=== PATIENT | female | born 1975 | race Caucasian/White ===

== ENCOUNTER 2016-12-19 19:57 | Inpatient (IN) | payer OTHER ==
[~2016-12-19] VITALS: Ht 157.5 cm; Wt 53.1 kg
[~2016-12-19 19:57] MED LIST: ALPR0.25 PO; ALPR1TAB6; BUPR8TAB; DEXT30TA16; DEXT5TAB27 PO; ESCI20TA; ESCI5TAB24 PO; ONDA4TAB7 PO; PRED20TA PO
[2016-12-19] MEDS ORDERED: ONDANSETRON PF 4 MG/2 ML VIAL. IV ONE (20:45)
[2016-12-19] MEDS ORDERED: IV NORMAL SALINE 1000ML BAG 1,000 ML IV SCH (21:08)
[2016-12-19 21:16] LABS: BASO # 0.1 x10^3/uL (0.0-0.2); BASO % 1 % (0-3); EOS % 0 % (0-3); HEMOGLOBIN 15.5 g/dL (12.0-15.5); LYMPH # 2.2 x10^3/uL (1.0-4.8); LYMPH % 22 % (24-48); MEAN CORPUSCULAR HEMOGLOBIN 30 pg (25-35); MEAN CORPUSCULAR HGB CONC 33 g/dL (31-37); MEAN CORPUSCULAR VOLUME 90 fL (79-100); MONO % 10 % (0-9); NEUT % 67 % (31-73); PLATELET COUNT 495 x10^3/uL (140-400); RED BLOOD COUNT 5.23 x10^6/uL (3.50-5.40); RED CELL DISTRIBUTION WIDTH 15.7 % (11.5-14.5); WHITE BLOOD COUNT 9.7 x10^3/uL (4.0-11.0)
[2016-12-19 21:18] LABS: BILIRUBIN,URINE MODERATE (NEG); GLUCOSE,URINE NEGATIVE (NEG); NITRITE,URINE NEGATIVE (NEG); PH,URINE 6.5; PROTEIN,URINE NEGATIVE (NEG-TRACE); UROBILINOGEN,URINE 0.2 mg/dL (0.2 mg/dL)
[2016-12-19 21:33] LABS: BACTERIA,URINE FEW /HPF (0-FEW); SQUAMOUS EPITHELIAL CELL,UR MANY /LPF
[2016-12-19 21:34] LABS: NEG OBC SER NEG; POS OBC SER POS
[2016-12-19 21:37] LABS: ALBUMIN 3.6 g/dL (3.4-5.0); ALBUMIN/GLOBULIN RATIO 0.8 (1.0-1.7); CALCIUM 9.1 mg/dL (8.5-10.1); CREATININE 1.8 mg/dL (0.6-1.0); GFR 31.2; TOTAL BILIRUBIN 0.4 mg/dL (0.2-1.0); TOTAL PROTEIN 8.2 g/dL (6.4-8.2)
[2016-12-19 21:40] LABS: POTASSIUM 2.5 mmol/L (3.5-5.1)
[2016-12-19] MEDS ORDERED: HYDROmorphone 2 MG/ML VIAL IV ONE (21:45)
[2016-12-19] MEDS ORDERED: POTASSIUM CL 40MEQ IN 0.9%NACL 1,000 ML IV ONE (22:00)
[2016-12-19] MEDS ORDERED: ONDANSETRON PF 4 MG/2 ML VIAL. IV PRN (22:15)
[2016-12-19] MEDS ORDERED: FENTANYL PF 100 MCG/2 ML VIAL. IV PRN (22:15)
[2016-12-19] MEDS ORDERED: ACETAMINOPHEN 325 MG TABLET. PO PRN (22:15)
[2016-12-19] MEDS: IV NORMAL SALINE 1000ML BAG 1,000 ML IV SCH (22:24)
[2016-12-19] MEDS ORDERED: POTASSIUM CHLORIDE 20 MEQ TABLET.ER. PO ONE (23:00)
[2016-12-20] VITALS (10 sets, daily range): BP systolic 86–126; BP diastolic 50–81
--- NOTE | 2016-12-20 00:31 | ACF ---
Admission Forms Criteria ABDOMINAL PAIN Clinical Indications for Admission to Inpatient Care (Place 'X' for any and all applicable criteria): Admission is indicated for ANY ONE of the following(1)(2)(3)(4)(5): [X]I. Inpatient admission required rather than observation care (Also use Abdominal Pain: Observation Care, as appropriate) because of ANY ONE of the following: [ ]a) Severe pain requiring acute inpatient management [ ]b) Identification of etiology/finding that requires inpatient care (eg, aortic dissection, free air) [ ]c) Absent bowel sounds with complete ileus(6) [ ]d) Suspected toxic megacolon [X]e) Severe electrolyte abnormalities requiring inpatient care [ ]f) High fever or infection requiring inpatient admission as indicated by ANY ONE of following(7)(8): [ ] i) Appropriate outpatient or observational care antimicrobial treatment unavailable, not effective, or not feasible [ ] ii) Documented bacteremia [ ] iii) Temperature > 104.9 degrees F (oral) [ ] iv) T >103.1 F (oral) or < 96.8 F(rectal) that does not respond to all emergency treatment measures [ ]g) Signs of intestinal obstruction [B] [ ]h) Hemodynamic instability [ ]i) IV fluid to replace significant ongoing losses (greater than 3 L/m2 per day) (12)(13) [ ]j) Percutaneous or open drainage (eg, abscess, biliary tract ) procedures [ ]k) Parenteral nutrition regimen that must be implemented on inpatient basis [ ]l) Other condition,treatment or monitoring requiring inpatient admission. [ ]II. Peritoneal signs present [ ]III. Surgery needed that cannot be performed on an ambulatory basis. [ ]IV. Evaluation requires patient to not eat or drink for extended period ( eg, more than 24 hours). [ ]V. Contraindications and/or Inappropriate clinical situations for Observational Care in patients with abdominal pain, when ANY ONE of the following is required: [ ]a) Thorough evaluation is required to prevent catastrophic events due to delays in diagnosing (e.g.Mesenteric ischemia) 1,3 [ ]b) Patient with severe pathology or with chronic symptoms unlikely to improve in the ED stay (3) [ ]. General contraindications and/or Inappropriate clinical situations for Observational Care in patients with abdominal pain, when ANY ONE of the following is required: [ ]a) Prediction of prolongation of LOS based on ANY ONE of the following may be considered as a contraindication for observational care 2, 3, 4, 5, 6, 7, 8, 9, 10, 11 [ ]i) Age > 65 yrs. [ ]ii) Patient arriving by ambulance [ ]iii) Patient with high acuity [ ]iv) Patient requiring vital sign monitoring [ ]v) Patient on IV medication [ ]b) Systolic blood pressures 180mmHg 3,12 [ ]c) Patient with altered mental status including delirium and other alteration of consciousness, (3) [ ]d) Patient whose discharge disposition will be to a care home home or rehabilitation home should not be managed in Emergency Department Observation Unit. CMS rule requires 3 days hospital stay before such placement.3,13 [ ]e) Patient with failure to thrive due to broad array of etiologies 3,16,17 [ ]f) Inability to ambulate 3,14 Extended stay beyond goal length of stay may be needed for(2)(3): [ ]a) Persistent abdominal pain with suspected intra-abdominal process [ ]b) Diagnosed condition requiring continued stay (e.g., pancreatitis, complicated diverticulitis) [ ]c) Surgery (e.g., colectomy) The original [email or web address] content created by [employer] has been revised. The portions of the content which have been revised are identified through the use of italic text or in bold, and [facility] has neither reviewed nor approved the modified material.All other unmodified content is copyright [employer]. Please see references footnoted in the original [email or web address] edition 2016 Admission Criteria Met?: Yes CARA RAMIREZ Dec 20, 2016 00:31
--- NOTE | 2016-12-20 01:24 | PHYS DOC ---
Past Medical History Past Medical History: Other Additional Past Medical Histor: CROHNS Past Surgical History: Colectomy, Other Additional Past Surgical Histo: BOWEL RESECTION Alcohol Use: Heavy Drug Use: None Adult General Chief Complaint Chief Complaint: ABDOMINAL PAIN HPI HPI Patient is a 41 year old female who has a history significant for Crohn's colitis who presents here today complaining of pain in her stomach. Patient denies any history of hypertension diabetes CHF COPD liver longer kidney problems. Patient is status post a colectomy and resection as well as a bilateral tubal ligation. Patient reports she smokes and drinks but does not do any drugs. Patient is not allergic to any medications. Patient reports the pain started approximately 1-2 days ago is been getting progressively worse. She denies any fevers shakes chills. Patient denies any diarrhea that's out of the ordinary for her. Patient reports that she usually has loose stools. Patient reports she's had nausea and vomiting. Patient denies any melena. Patient does report occasional slight amount of blood in her stools which she thinks is from her hemorrhoids. Patient denies any hematemesis. Patient has a dysuria frequency or urgency. Patient denies any URI symptoms. Patient reports that she has been unable to keep down much liquids or food over the last several days. Patient's physical exam was significant for diffuse mild tenderness to palpation. Patient had no rebound or guarding. Patient has normal active bowel sounds. 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 Patient does not present with any signs or symptoms of be consistent with an acute surgical abdomen. Patient's mucous membranes are moist. Patient is nontoxic appearing. She's ER workup was significant for labs revealed a significant hypokalemia. Patient's potassium level was 2.3. Patient's x-rays were unremarkable. There was no free air or air-fluid levels. There was a paucity of gas on the x-ray. A/P #1 Crohn's colitis exacerbation. Patient is clinically hemodynamically stable. Patient was given pain medicines in the ED with some resolution of her discomfort. Patient did have a significant hypokalemia that will need to be treated aggressively in the ED as well as inpatient. Patient's potassium level was 2.3 and she did complain of some generalized weakness. Patient was given by mouth potassium as well as repleted through IV potassium as well. Patient be admitted to the hospital on, treated for further repletion of her potassium and monitoring and treatment of her abdominal pain and Crohn's colitis. Review of Systems Review of Systems Constitutional: Denies fever or chills [] Eyes: Denies change in visual acuity, redness, or eye pain [] All other review systems are negative except as documented in the history of present illness portion. Current Medications Current Medications Current Medications Medications (Trade) Dose Ordered Sig/Moiz Start Time Stop Time Status Last Admin Dose Admin Hydromorphone HCl 1 mg 1 mg 1X ONCE 12/19/16 21:45 12/19/16 21:46 DC 12/19/16 21:47 1 MG Ondansetron HCl (Zofran) 4 mg 1X ONCE 12/19/16 20:45 12/19/16 21:12 DC 12/19/16 21:18 4 MG Potassium Chloride/Sodium Chloride (KCl 40 Meq-NS 1,000 ml Iv Soln) 1,000 ml @ 75 mls/hr 1X ONCE 12/19/16 22:00 12/20/16 11:19 12/19/16 22:22 75 MLS/HR Sodium Chloride (Iv Sodium Chloride 0.9% 1000ml Bag) 1,000 ml @ 1,000 mls/hr Q1H 12/19/16 21:08 12/19/16 22:07 DC 12/19/16 21:17 1,000 MLS/HR Allergies Allergies Allergies Coded Allergies Type Severity Reaction Last Updated Verified No Known Drug Allergies 03/10/16 No Physical Exam Physical Exam Constitutional: Well developed, well nourished, no acute distress, non-toxic appearance. [] HENT: Normocephalic, atraumatic, bilateral external ears normal, oropharynx moist, no oral exudates, nose normal. [] Eyes: PERRLA, EOMI, conjunctiva normal, no discharge. [] Neck: Normal range of motion, no tenderness, supple, no stridor. [] Cardiovascular:Heart rate regular rhythm, no murmur [] Lungs & Thorax: Bilateral breath sounds clear to auscultation [] Back: No tenderness, no CVA tenderness. [] Extremities: No tenderness, no cyanosis, no clubbing, ROM intact, no edema. [] Neurologic: Alert and oriented X 3, normal motor function, normal sensory function, no focal deficits noted. [] Psychologic: Affect normal, judgement normal, mood normal. [] Current Patient Data Vital Signs Vital Signs Date Time Temp Pulse Resp B/P Pulse Ox O2 Delivery O2 Flow Rate FiO2 12/19/16 21:58 95 135/87 98 Room Air 12/19/16 21:47 16 12/19/16 20:00 96.6 96.6 Lab Values Laboratory Tests Test 12/19/16 20:36 White Blood Count 9.7x10^3/uL (4.0-11.0) Red Blood Count 5.23x10^6/uL (3.50-5.40) Hemoglobin 15.5g/dL (12.0-15.5) Hematocrit 47.0% (36.0-47.0) Mean Corpuscular Volume 90fL (79-100) Mean Corpuscular Hemoglobin 30pg (25-35) Mean Corpuscular Hemoglobin Concent 33g/dL (31-37) Red Cell Distribution Width 15.7% (11.5-14.5) H Platelet Count 495x10^3/uL (140-400) H Neutrophils (%) (Auto) 67% (31-73) Lymphocytes (%) (Auto) 22% (24-48) L Monocytes (%) (Auto) 10% (0-9) H Eosinophils (%) (Auto) 0% (0-3) Basophils (%) (Auto) 1% (0-3) Neutrophils # (Auto) 6.5x10^3uL (1.8-7.7) Lymphocytes # (Auto) 2.2x10^3/uL (1.0-4.8) Monocytes # (Auto) 0.9x10^3/uL (0.0-1.1) Eosinophils # (Auto) 0.0x10^3/uL (0.0-0.7) Basophils # (Auto) 0.1x10^3/uL (0.0-0.2) Urine Collection Type Unknown Urine Color Yellow Urine Clarity Clear Urine pH 6.5 Urine Specific [place] 1.010 Urine Protein Negativemg/dL (NEG-TRACE) Urine Glucose (UA) Negativemg/dL (NEG) Urine Ketones (Stick) Tracemg/dL (NEG) Urine Blood Trace (NEG) Urine Nitrite Negative (NEG) Urine Bilirubin Moderate (NEG) Urine Urobilinogen Dipstick 0.2mg/dL (0.2 mg/dL) Urine Leukocyte Esterase Trace (NEG) Urine RBC 3-5/HPF (0-2) Urine WBC 5-10/HPF (0-4) Urine Squamous Epithelial Cells Many/LPF Urine Bacteria Few/HPF (0-FEW) Sodium Level 133mmol/L (136-145) L Potassium Level 2.5mmol/L (3.5-5.1) *L Chloride Level 94mmol/L (98-107) L Carbon Dioxide Level 21mmol/L (21-32) Anion Gap 18 (6-14) H Blood Urea Nitrogen 12mg/dL (7-20) Creatinine 1.8mg/dL (0.6-1.0) H Estimated GFR (Cockcroft-Gault) 31.2 BUN/Creatinine Ratio 7 (6-20) Glucose Level 89mg/dL (70-99) Calcium Level 9.1mg/dL (8.5-10.1) Total Bilirubin 0.4mg/dL (0.2-1.0) Aspartate Amino Transferase (AST) 22U/L (15-37) Alanine Aminotransferase (ALT) 19U/L (14-59) Alkaline Phosphatase 132U/L (46-116) H Total Protein 8.2g/dL (6.4-8.2) Albumin 3.6g/dL (3.4-5.0) Albumin/Globulin Ratio 0.8 (1.0-1.7) L Lipase 189U/L (73-393) Serum Test, Qualitative Negative (NEG) Laboratory Tests 12/19/16 20:36 Laboratory Tests 12/19/16 20:36 EKG EKG [] Radiology/Procedures Radiology/Procedures [] Course & Med Decision Making Course & Med Decision Making Pertinent Labs and Imaging studies reviewed. (See chart for details) [] Dragon Disclaimer Dragon Disclaimer This electronic medical record was generated, in whole or in part, using a voice recognition dictation system. Departure Departure Impression: Primary Impression: Intractable abdominal pain Additional Impressions: Nausea & vomiting Hypokalemia Dehydration Crohns disease Disposition: ADMITTED INPATIENT Admitting Physician: Other (Reusch) Condition: STABLE Referrals: NO PCP (PCP) Problem Qualifiers OLIVIER BARBOSA MD Dec 20, 2016 01:24
[2016-12-20] MEDS: NICOTINE 14MG PATCH. TD SCH ×2 (01:30→08:54)
[2016-12-20] MEDS: IV NORMAL SALINE 1000ML BAG 1,000 ML IV SCH ×2 (05:21→15:42)
[2016-12-20 05:43] LABS: BASO # 0.1 x10^3/uL (0.0-0.2); BASO % 1 % (0-3); EOS % 1 % (0-3); HEMOGLOBIN 11.8 g/dL (12.0-15.5); LYMPH # 2.6 x10^3/uL (1.0-4.8); LYMPH % 33 % (24-48); MEAN CORPUSCULAR HEMOGLOBIN 30 pg (25-35); MEAN CORPUSCULAR HGB CONC 33 g/dL (31-37); MEAN CORPUSCULAR VOLUME 91 fL (79-100); MONO % 13 % (0-9); NEUT % 52 % (31-73); PLATELET COUNT 345 x10^3/uL (140-400); RED BLOOD COUNT 3.97 x10^6/uL (3.50-5.40); RED CELL DISTRIBUTION WIDTH 15.2 % (11.5-14.5); WHITE BLOOD COUNT 7.7 x10^3/uL (4.0-11.0)
[2016-12-20] MEDS: ONDANSETRON ODT 4 MG TAB.RAPDIS. PO SCH ×3 (06:00→17:38)
[2016-12-20 06:09] LABS: ALBUMIN 2.5 g/dL (3.4-5.0); ALBUMIN/GLOBULIN RATIO 0.8 (1.0-1.7); CALCIUM 7.5 mg/dL (8.5-10.1); CREATININE 1.3 mg/dL (0.6-1.0); GFR 45.4; POTASSIUM 3.4 mmol/L (3.5-5.1); TOTAL BILIRUBIN 0.3 mg/dL (0.2-1.0); TOTAL PROTEIN 5.8 g/dL (6.4-8.2)
--- NOTE | 2016-12-20 08:36 | RAD ---
Two-view abdominal series and PA view chest x-ray Clinical indications: Left-sided abdominal pain. Crohn's disease. Findings: No gas is identified within the bowel. No air-fluid levels are seen within the bowel. No free intraperitoneal air is seen. Vascular calcifications are seen within the pelvis. Chest x-ray demonstrates no acute lung infiltrate or pleural effusion or pulmonary edema or pneumothorax. The heart size and pulmonary vasculature and mediastinum and both kimberly are unremarkable. IMPRESSION: Gasless abdomen. This may be be seen with bowel obstruction with fluid-filled bowel loops. No free air. Chest x-ray demonstrates no acute lung infiltrate.
[2016-12-20] MEDS: ESCITALOPRAM 5 MG TABLET. PO SCH (08:53)
[2016-12-20] MEDS: ALPRAZOLAM 0.25 MG TABLET. PO SCH (08:53)
[2016-12-20] MEDS: DEXTROAMPHETAMINE PO SCH ×2 (09:00→20:59)
[2016-12-20] MEDS: AMPHETAMINE PO SCH ×2 (09:00→20:59)
[2016-12-20] MEDS: PREDNISONE 20 MG TABLET PO SCH (09:00)
--- NOTE | 2016-12-20 14:24 | PDOC2 ---
GI CONSULT Reason For Consult: Crohn's, abd pain HPI: HPI: 41 y/o white female admitted through the ER. Per RN, IPC ordering GI consult. GI history: Crohn's disease diagnosed ~15 years ago. Initially on Remicade, stopped for "allergy," then was switched to oral medication w/o good response. Had ileocolonic resection 8-9 years ago. Afterwards treated w/ Humira which she didn't like, switched back to an oral med which wasn't tolerated. Since then takes intermittent prednisone for flare symptoms (estimates 3-4 times yearly). Last colonoscopy ~4 years ago. Last seen here for same in 08/2016. At that time, checked TPMT (above normal) and advised outpt follow-up to discuss Imuran which she has not done. Past imaging here as below. Still smokes 1/2 ppd, drinks 2 glasses of wine each night. Off of prednisone since 08/2016. Flare symptoms recurred 2-3 weeks ago. She describes 5-6 watery stools daily (not unlike her normal pattern), occasional rectal bleeding, mid to left-sided abd pain, and n/v. Takes Excedrin QD. Currently tolerating clear liquids. Significant labs: Hgb 15.5 to 1.8 (similar to admission last year), K+ 2.5 to 3.4, Cr 1.8 to 1.3. Acute abd series shows gasless abdomen. PMH: PMH: Crohn's, GERD, anxiety/depression, ileocolonic resection, tubal ligation, unilateral salpingo-oophorectomy, left wrist surgery, tonsillectomy FH: Family History: Other (PGF had "a colon issue with surgery") Social History: Smoke: <1 pack per day (1/2 ppd) ALCOHOL: other (2 glasses of wine each night) Drugs: None ROS: GEN: Denies fevers, chills, sweats HEENT: Denies blurred vision, sore throat CV: Denies chest pain RESP: Denies shortness of air, cough GI: Per HPI : Denies hematuria, dysuria ENDO: Denies weight changes NEURO: Denies confusion, dizziness MSK: Denies weakness, joint pain/swelling SKIN: Denies jaundice, pruritus VItals: Vitals: Vital Signs Date Time Temp Pulse Resp B/P Pulse Ox O2 Delivery O2 Flow Rate FiO2 12/20/16 10:47 97.9 91 16 96/59 97 Room Air 97.9 Labs: Labs: Laboratory Tests Test 12/19/16 19:46 12/19/16 20:36 12/20/16 03:15 Bedside Urine HCG, Qualitative Hcg negative (Negative) White Blood Count 9.7x10^3/uL (4.0-11.0) 7.7x10^3/uL (4.0-11.0) Red Blood Count 5.23x10^6/uL (3.50-5.40) 3.97x10^6/uL (3.50-5.40) Hemoglobin 15.5g/dL (12.0-15.5) 11.8g/dL (12.0-15.5) Hematocrit 47.0% (36.0-47.0) 36.0% (36.0-47.0) Mean Corpuscular Volume 90fL (79-100) 91fL (79-100) Mean Corpuscular Hemoglobin 30pg (25-35) 30pg (25-35) Mean Corpuscular Hemoglobin Concent 33g/dL (31-37) 33g/dL (31-37) Red Cell Distribution Width 15.7% (11.5-14.5) 15.2% (11.5-14.5) Platelet Count 495x10^3/uL (140-400) 345x10^3/uL (140-400) Neutrophils (%) (Auto) 67% (31-73) 52% (31-73) Lymphocytes (%) (Auto) 22% (24-48) 33% (24-48) Monocytes (%) (Auto) 10% (0-9) 13% (0-9) Eosinophils (%) (Auto) 0% (0-3) 1% (0-3) Basophils (%) (Auto) 1% (0-3) 1% (0-3) Neutrophils # (Auto) 6.5x10^3uL (1.8-7.7) 4.0x10^3uL (1.8-7.7) Lymphocytes # (Auto) 2.2x10^3/uL (1.0-4.8) 2.6x10^3/uL (1.0-4.8) Monocytes # (Auto) 0.9x10^3/uL (0.0-1.1) 1.0x10^3/uL (0.0-1.1) Eosinophils # (Auto) 0.0x10^3/uL (0.0-0.7) 0.1x10^3/uL (0.0-0.7) Basophils # (Auto) 0.1x10^3/uL (0.0-0.2) 0.1x10^3/uL (0.0-0.2) Urine Collection Type Unknown Urine Color Yellow Urine Clarity Clear Urine pH 6.5 Urine Specific [place] 1.010 Urine Protein Negativemg/dL (NEG-TRACE) Urine Glucose (UA) Negativemg/dL (NEG) Urine Ketones (Stick) Tracemg/dL (NEG) Urine Blood Trace (NEG) Urine Nitrite Negative (NEG) Urine Bilirubin Moderate (NEG) Urine Urobilinogen Dipstick 0.2mg/dL (0.2 mg/dL) Urine Leukocyte Esterase Trace (NEG) Urine RBC 3-5/HPF (0-2) Urine WBC 5-10/HPF (0-4) Urine Squamous Epithelial Cells Many/LPF Urine Bacteria Few/HPF (0-FEW) Sodium Level 133mmol/L (136-145) 135mmol/L (136-145) Potassium Level 2.5mmol/L (3.5-5.1) 3.4mmol/L (3.5-5.1) Chloride Level 94mmol/L (98-107) 103mmol/L (98-107) Carbon Dioxide Level 21mmol/L (21-32) 18mmol/L (21-32) Anion Gap 18 (6-14) 14 (6-14) Blood Urea Nitrogen 12mg/dL (7-20) 11mg/dL (7-20) Creatinine 1.8mg/dL (0.6-1.0) 1.3mg/dL (0.6-1.0) Estimated GFR (Cockcroft-Gault) 31.2 45.4 BUN/Creatinine Ratio 7 (6-20) 8 (6-20) Glucose Level 89mg/dL (70-99) 68mg/dL (70-99) Calcium Level 9.1mg/dL (8.5-10.1) 7.5mg/dL (8.5-10.1) Total Bilirubin 0.4mg/dL (0.2-1.0) 0.3mg/dL (0.2-1.0) Aspartate Amino Transf (AST/SGOT) 22U/L (15-37) 16U/L (15-37) Alanine Aminotransferase (ALT/SGPT) 19U/L (14-59) 14U/L (14-59) Alkaline Phosphatase 132U/L (46-116) 90U/L (46-116) Total Protein 8.2g/dL (6.4-8.2) 5.8g/dL (6.4-8.2) Albumin 3.6g/dL (3.4-5.0) 2.5g/dL (3.4-5.0) Albumin/Globulin Ratio 0.8 (1.0-1.7) 0.8 (1.0-1.7) Lipase 189U/L (73-393) Serum Test, Qualitative Negative (NEG) Allergies: Coded Allergies: No Known Drug Allergies (Unverified , 03/10/16) Medications: Current Medications Medications (Trade) Dose Ordered Sig/Moiz Route PRN Reason Start Time Stop Time Status Last Admin Dose Admin Sodium Chloride (Iv Sodium Chloride 0.9% 1000ml Bag) 1,000 ml @ 1,000 mls/hr Q1H IV 12/19/16 21:08 12/19/16 22:07 DC 12/19/16 21:17 Ondansetron HCl (Zofran) 4 mg 1X ONCE IV 12/19/16 20:45 12/19/16 21:12 DC 12/19/16 21:18 Hydromorphone HCl (Dilaudid) 1 mg 1X ONCE IV 12/19/16 21:45 12/19/16 21:46 DC 12/19/16 21:47 Potassium Chloride 40 meq 40 meq 1X ONCE PO 12/19/16 23:00 12/19/16 23:01 DC 12/19/16 22:30 Potassium Chloride/Sodium Chloride (KCl 40 Meq-NS 1,000 ml Iv Soln) 1,000 ml @ 75 mls/hr 1X ONCE IV 12/19/16 22:00 12/20/16 11:19 DC 12/19/16 22:22 Ondansetron HCl (Zofran) 4 mg PRN Q8HRS PRN IV NAUSEA/VOMITING 12/19/16 22:15 12/20/16 22:14 12/19/16 23:19 Fentanyl Citrate 50 mcg 50 mcg PRN Q2HR PRN IV PAIN 12/19/16 22:15 12/20/16 22:14 12/19/16 23:23 Sodium Chloride (Iv Sodium Chloride 0.9% 1000ml Bag) 1,000 ml @ 125 mls/hr Q8H IV 12/19/16 22:15 12/20/16 22:14 12/20/16 05:21 Alprazolam (Xanax) 0.25 mg DAILY PO 12/20/16 09:00 12/20/16 08:53 Escitalopram Oxalate (Lexapro) 5 mg DAILY PO 12/20/16 09:00 12/20/16 08:53 Ondansetron HCl (Zofran Odt) 4 mg Q6HRS PO 12/20/16 06:00 12/20/16 12:30 Nicotine (Nicoderm Cq 14mg) 1 patch DAILY TD 12/20/16 01:30 12/20/16 08:54 Imaging: Imaging: CT A/P w/ oral and IV contrast 03/2016 IMPRESSION - Status post subtotal colectomy with anastomosis in the right lower quadrant. There is a 10-15 centimeter segment of small bowel just proximal to the anastomosis that shows wall thickening and mucosal enhancement, consistent with active Crohn disease. No evidence of perforation, obstruction or abscess. - Borderline enlarged mesenteric lymph nodes, nonspecific but likely related to known Crohn disease. - Otherwise no significant abnormality. CT A/P w/ oral contrast 08/2016 IMPRESSION: No definite acute finding seen in the abdomen or pelvis. No definite small or large bowel pathology seen. Bilateral minute punctate renal calculi. PE: GEN: NAD HEENT: Atraumatic, PERRL LUNGS: CTAB HEART: RRR ABD: BS+, periumbilical /epigastric tenderness spreads lower, +scar EXTREMITY: No edema SKIN: No rashes, no jaundice NEURO/PSYCH: A & O 3 A/P: A/P: Crohn's disease s/p ileocolonic resection -has tried biologics (Remicade, Humira) and oral medications (presumably mesalamines, unsure of Imuran) in the past -uses intermittent prednisone for flares 3-4 times yearly -diagnosed 15 years ago, last colonoscopy 4 years ago, last saw a honey producer in [place], [place] 2 years ago -checked TPMT last admission (above normal) -still smokes Abdominal pain, n/v, diarrhea, hematochezia -typical flare symptoms, onset 2-3 weeks ago -x-ray w/ possible obstruction ---> no vomiting today, tolerating clears CONSUELO -- D/w Dr. Childress - start IV steroids, check CT A/P (oral contrast only w/ Cr 1.3 ) r/o obstruction/stricture, and ask surgery to see. ?start Imuran FREDRICK WILSON Dec 20, 2016 14:24
[2016-12-20] MEDS ORDERED: IOHEXOL 240 MG/ML 50ML VIAL. PO ONE (14:30)
[2016-12-20 15:14] LABS: ALBUMIN 2.2 g/dL (3.4-5.0); ALBUMIN/GLOBULIN RATIO 0.7 (1.0-1.7); CALCIUM 7.4 mg/dL (8.5-10.1); GFR 61.4; POTASSIUM 3.2 mmol/L (3.5-5.1); TOTAL BILIRUBIN 0.2 mg/dL (0.2-1.0); TOTAL PROTEIN 5.2 g/dL (6.4-8.2)
[2016-12-20] MEDS: methylPREDNISolone SOD SUCC PF 40 MG/ML VIAL. IV SCH ×2 (15:43→20:58)
--- NOTE | 2016-12-20 17:39 | RAD ---
CT study of the abdomen and pelvis without IV contrast Clinical indications: Crohn's disease. Status post resection. Abdominal pain with nausea and vomiting. Technique: Non-IV contrast helical CT scanning of the abdomen and pelvis was performed. Without IV contrast, the sensitivity to detect organ pathology is decreased. 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 PQRS Compliance Statement: One or more of the following individualized dose reduction techniques were utilized for this examination: 1. Automated exposure control 2. Adjustment of the mA and/or kV according to patient size 3. Use of iterative reconstruction technique Comparison: March 10, 2016. Findings: The liver and spleen and pancreas are homogeneous in appearance on this noncontrast study. The gallbladder is normal and no extra hepatic biliary ductal dilatation is seen. No adrenal mass is seen. Tiny punctate stones are seen within both kidneys mainly involving the medulla and therefore is consistent with medullary sponge kidney. Otherwise no obstructing stone of either kidney is seen. No hydronephrosis or hydroureter is seen. Multiple calcified phleboliths are seen within the anatomic pelvis. Urinary bladder is not distended. No renal mass is seen on either side on this noncontrast study. No aneurysmal dilatation of the abdominal aorta is seen. Reactive mesenteric lymph nodes are present within the anterior lower abdomen and the upper pelvis. The patient has had a subtotal colectomy. There is diffuse wall thickening of the entire colon and rectosigmoid region to the ileocolic anastomosis. There is mild small bowel wall thickening just proximal to the ileocolic anastomosis. No obstructive bowel pattern is seen. Contrast is seen all the way down into the rectosigmoid region. No free air or free fluid is seen. No osteolytic process is seen. No lung base infiltrate is seen. IMPRESSION: History of subtotal colectomy. There is diffuse wall thickening of the entire colon and rectosigmoid region. This may be seen with Crohn's disease given the patient's history but typically, Crohn's disease is more segmental. Therefore other causes of colitis including ulcerative colitis or infection should be considered. There is some mild wall thickening of the distal small bowel just proximal to the ileocolic anastomosis as well. Reactive mesenteric lymphadenopathy is seen.
[2016-12-21 02:58] VITALS: BP 109/79
[2016-12-21 04:43] LABS: BASO % 0 % (0-3); EOS % 0 % (0-3); HEMATOCRIT 36.6 % (36.0-47.0); HEMOGLOBIN 12.2 g/dL (12.0-15.5); LYMPH # 0.6 x10^3/uL (1.0-4.8); LYMPH % 11 % (24-48); MEAN CORPUSCULAR HEMOGLOBIN 29 pg (25-35); MEAN CORPUSCULAR HGB CONC 33 g/dL (31-37); MEAN CORPUSCULAR VOLUME 88 fL (79-100); MONO % 2 % (0-9); NEUT % 86 % (31-73); PLATELET COUNT 349 x10^3/uL (140-400); RED BLOOD COUNT 4.16 x10^6/uL (3.50-5.40); RED CELL DISTRIBUTION WIDTH 15.9 % (11.5-14.5); WHITE BLOOD COUNT 5.5 x10^3/uL (4.0-11.0)
[2016-12-21] MEDS: ONDANSETRON ODT 4 MG TAB.RAPDIS. PO SCH ×4 (06:00→18:02)
[2016-12-21 07:00] VITALS: BP 84/51
[2016-12-21 08:09] LABS: PLT ESTIMATE ADEQUATE (ADEQUATE)
[2016-12-21] MEDS: ALPRAZOLAM 0.25 MG TABLET. PO SCH (08:37)
[2016-12-21] MEDS: ESCITALOPRAM 5 MG TABLET. PO SCH (08:37)
[2016-12-21] MEDS: methylPREDNISolone SOD SUCC PF 40 MG/ML VIAL. IV SCH (08:38)
[2016-12-21] MEDS: NICOTINE 14MG PATCH. TD SCH (08:38)
[2016-12-21] MEDS: DEXTROAMPHETAMINE PO SCH (09:00)
[2016-12-21] MEDS: AMPHETAMINE PO SCH (09:00)
[2016-12-21] MEDS: PREDNISONE 20 MG TABLET PO SCH (09:00)
[2016-12-21 11:00] VITALS: BP 92/54
--- NOTE | 2016-12-21 11:35 | PDOC ---
Subjective: Subjective: Feeling much better today. Tolerating clears, wants to advance. Less abd pain. Stooling the same as always. Wants to leave. Objective: Objective: D/w Dr. Thomas RN. Vital Signs: Vital Signs Date Time Temp Pulse Resp B/P Pulse Ox O2 Delivery O2 Flow Rate FiO2 12/21/16 07:00 97.9 80 17 84/51 98 Room Air 97.9 Labs: Laboratory Tests Test 12/20/16 14:50 12/21/16 03:45 Sodium Level 139mmol/L Potassium Level 3.2mmol/L Chloride Level 109mmol/L Carbon Dioxide Level 21mmol/L Anion Gap 9 Blood Urea Nitrogen 7mg/dL Creatinine 1.0mg/dL Estimated GFR (Cockcroft-Gault) 61.4 BUN/Creatinine Ratio 7 Glucose Level 80mg/dL Calcium Level 7.4mg/dL Total Bilirubin 0.2mg/dL Aspartate Amino Transf (AST/SGOT) 15U/L Alanine Aminotransferase (ALT/SGPT) 12U/L Alkaline Phosphatase 80U/L Total Protein 5.2g/dL Albumin 2.2g/dL Albumin/Globulin Ratio 0.7 White Blood Count 5.5x10^3/uL Red Blood Count 4.16x10^6/uL Hemoglobin 12.2g/dL Hematocrit 36.6% Mean Corpuscular Volume 88fL Mean Corpuscular Hemoglobin 29pg Mean Corpuscular Hemoglobin Concent 33g/dL Red Cell Distribution Width 15.9% Platelet Count 349x10^3/uL Neutrophils (%) (Auto) 86% Lymphocytes (%) (Auto) 11% Monocytes (%) (Auto) 2% Eosinophils (%) (Auto) 0% Basophils (%) (Auto) 0% Neutrophils # (Auto) 4.7x10^3uL Lymphocytes # (Auto) 0.6x10^3/uL Monocytes # (Auto) 0.1x10^3/uL Eosinophils # (Auto) 0.0x10^3/uL Basophils # (Auto) 0.0x10^3/uL Segmented Neutrophils % 70% Band Neutrophils % 20% Lymphocytes % 6% Atypical Lymphocytes % (Manual) 1% Monocytes % 3% Platelet Estimate Adequate Imaging: CT A/P w/ oral contrast IMPRESSION: History of subtotal colectomy. There is diffuse wall thickening of the entire colon and rectosigmoid region. This may be seen with Crohn's disease given the patient's history but typically, Crohn's disease is more segmental. Therefore other causes of colitis including ulcerative colitis or infection should be considered. There is some mild wall thickening of the distal small bowel just proximal to the ileocolic anastomosis as well. Reactive mesenteric lymphadenopathy is seen. PE: GEN: NAD LUNGS: CTAB HEART: RRR ABD: NABS, S/ND/NT NEURO/PSYCH: A & O 3 A/P: Crohn's disease s/p ileocolonic resection -has tried biologics (Remicade, Humira) and oral medications (presumably mesalamines, unsure of Imuran) in the past -uses intermittent prednisone for flares -diagnosed 15 years ago (says Crohn's colitis), last colonoscopy 4 years ago -TPMT normal -still smokes Abdominal pain, n/v, diarrhea, hematochezia - improved -typical flare symptoms, onset 2-3 weeks ago -CT as above, stool studies pending -- Better today. Will advance diet. Dr. Childress to see this afternoon. ?change to PO steroids ?Imuran Suggest GI follow-up as outpt, smoking cessation. FREDRICK WILSON Dec 21, 2016 11:35
[2016-12-21 12:55] VITALS: BP 92/54
[2016-12-21 15:00] VITALS: BP 163/53
--- NOTE | 2016-12-22 01:34 | DS ---
DATE OF DISCHARGE: 12/21/2016 ADMISSION DIAGNOSIS: Crohn's exacerbation. DISCHARGE DIAGNOSIS: Resolving Crohn's exacerbation. HOSPITAL COURSE: The patient is a pleasant 41-year-old female presented with Crohn's exacerbation. She was admitted. We consulted with GI. She was given steroids and empiric antibiotics and fluids. Today, she is doing better. We plan to discharge with close outpatient followup. DISPOSITION: Home. ACTIVITY: As tolerated. DIET: Low sodium. MEDICATIONS: Please see the MRAD. TOTAL TIME: 32 minutes. FARA MEJIA DO DR: GUSTAVO/nieves JOB#: [id number] / [id number]
== END 2016-12-21 19:40 | disposition home or self-care (01) | DRG 385 ==
LOC: ER 19:57 → 5 NORTH 22:02
PROVIDERS: ADMIT Internal Medicine Hematology & Oncology; ATTEND Internal Medicine Hematology & Oncology
DX: K50.10 Crohn's disease of large intestine without complications (principal); N17.0 Acute kidney failure with tubular necrosis; E86.0 Dehydration; E87.6 Hypokalemia; F17.210 Nicotine dependence, cigarettes, uncomplicated; F32.9 Major depressive disorder, single episode, unspecified; F41.9 Anxiety disorder, unspecified; K21.9 Gastro-esophageal reflux disease without esophagitis; Z90.49 Acquired absence of other specified parts of digestive tract; N20.0 Calculus of kidney; K64.9 Unspecified hemorrhoids; Z98.51 Tubal ligation status; Z90.79 Acquired absence of other genital organ(s)
CPT/HCPCS: 36415; 74022; 74176; 80053; 81001; 81025; 83690; 84703; 85007; 85027; 87045; 87086; 87324; 96361; 96374; 96375; 96376; J1170; J2405; J2920; J3010; J3480; J7030; Q0162; Q9966; 99285-25

== ENCOUNTER 2018-08-21 17:15 | Emergency (ER) | payer OTHER ==
[~2018-08-21] VITALS: Ht 157.5 cm; Wt 56.7 kg
[~2018-08-21 17:15] MED LIST changes: -ESCI20TA; -ESCI5TAB24 PO; +ESCITALOPRAM OX20 MG; +ESCITALOPRAM OXA5 MG PO; +METR500T PO
[2018-08-21 18:19] LABS: BILIRUBIN,URINE NEGATIVE (NEG); CLARITY,URINE CLEAR; COLOR,URINE YELLOW; NITRITE,URINE NEGATIVE (NEG); PH,URINE 6.5; PROTEIN,URINE NEGATIVE (NEG-TRACE); UROBILINOGEN,URINE 0.2 mg/dL (0.2 mg/dL)
[2018-08-21 18:26] LABS: BARBITURATES NEG (NEG); BENZODIAZEPINES POS (NEG); CANNABINOIDS NEG (NEG); COCAINE NEG (NEG); METHADONE NEG (NEG); OPIATES NEG (NEG); PHENCYCLIDINE NEG (NEG)
[2018-08-21] MEDS: IV NORMAL SALINE 1000ML BAG 1,000 ML IV ONE (18:26)
[2018-08-21] MEDS: methylPREDNISolone SOD SUCC PF 125 MG/2 ML VIAL. IV ONE (18:27)
[2018-08-21 18:28] LABS: BASO % 0 % (0-3); EOS % 0 % (0-3); HEMATOCRIT 35.7 % (36.0-47.0); HEMOGLOBIN 12.1 g/dL (12.0-15.5); LYMPH # 0.7 x10^3/uL (1.0-4.8); LYMPH % 13 % (24-48); MEAN CORPUSCULAR HEMOGLOBIN 31 pg (25-35); MEAN CORPUSCULAR HGB CONC 34 g/dL (31-37); MEAN CORPUSCULAR VOLUME 91 fL (79-100); MONO # 0.2 x10^3/uL (0.0-1.1); MONO % 4 % (0-9); NEUT # 4.9 x10^3uL (1.8-7.7); NEUT % 83 % (31-73); PLATELET COUNT 411 x10^3/uL (140-400); RED BLOOD COUNT 3.94 x10^6/uL (3.50-5.40); RED CELL DISTRIBUTION WIDTH 15.3 % (11.5-14.5); WHITE BLOOD COUNT 5.9 x10^3/uL (4.0-11.0)
[2018-08-21 18:28] LABS: AMPHETAMINE/METHAMPHETAMINE POS (NEG); BACTERIA,URINE FEW /HPF (0-FEW); RBC,URINE 0 /HPF (0-2); SQUAMOUS EPITHELIAL CELL,UR FEW /LPF; WBC,URINE 0 /HPF (0-4)
[2018-08-21] MEDS: ONDANSETRON PF 4 MG/2 ML VIAL. IV ONE (18:28)
[2018-08-21] MEDS: MORPHINE SULFATE 10 MG/ML VIAL. IV ONE (18:29)
[2018-08-21 18:44] LABS: CALCIUM 8.9 mg/dL (8.5-10.1); CREATININE 1.1 mg/dL (0.6-1.0); GFR 54.5; POTASSIUM 3.5 mmol/L (3.5-5.1)
[2018-08-21] MEDS ORDERED: CONTRAST GIVEN. MC PRN (18:45)
--- NOTE | 2018-08-21 18:48 | PHYS DOC ---
Past Medical History Past Medical History: Other Additional Past Medical Histor: CROHNS Past Surgical History: Colectomy, Other Additional Past Surgical Histo: BOWEL RESECTION Alcohol Use: Heavy Drug Use: None Adult General Chief Complaint Chief Complaint: NAUSEA/VOMITING/DIARRHA HPI HPI Patient is a 43 year old female with a history of Crohn's/colitis who presents today complaining of nausea and vomiting for 2 weeks as well as diarrhea. Patient is also complaining of 7 out of 10 left-sided abdominal pain that started worse since last week. Patient denies any hematemesis or melena. She states she is currently on prednisone from a previous prescription. Review of Systems Review of Systems Constitutional: Denies fever or chills [] Eyes: Denies change in visual acuity, redness, or eye pain [] HENT: Denies nasal congestion or sore throat [] Respiratory: Denies cough or shortness of breath [] Cardiovascular: No additional information not addressed in HPI [] GI: Reports nausea vomiting and diarrhea. Reports abdominal pain. : Denies dysuria or hematuria [] Musculoskeletal: Denies back pain or joint pain [] Integument: Denies rash or skin lesions [] Neurologic: Denies headache, focal weakness or sensory changes [] All other systems were reviewed and found to be within normal limits, except as documented in this note. Current Medications Current Medications Current Medications Medications (Trade) Dose Ordered Sig/Moiz Start Time Stop Time Status Last Admin Dose Admin Info (CONTRAST GIVEN -- Rx MONITORING) 1 each PRN DAILY PRN 08/21/18 18:45 08/23/18 18:44 Iohexol (Omnipaque 300 Mg/ml) 75 ml 1X ONCE 08/21/18 18:45 08/21/18 18:46 DC 08/21/18 19:09 60 ML Methylprednisolone Sodium Succinate (SOLU-Medrol 125MG VIAL) 125 mg 1X ONCE 08/21/18 18:30 08/21/18 18:31 DC 08/21/18 18:27 125 MG Morphine Sulfate (Morphine Sulfate) 5 mg 1X ONCE 08/21/18 18:30 08/21/18 18:31 DC 08/21/18 18:29 5 MG Ondansetron HCl (Zofran) 4 mg 1X ONCE 08/21/18 18:30 08/21/18 18:31 DC 12/12/18 18:28 4 MG Sodium Chloride 1,000 ml @ 1,000 mls/hr 1X ONCE 08/21/18 18:30 08/21/18 19:29 DC 08/21/18 18:26 1,000 MLS/HR Allergies Allergies Allergies Coded Allergies Type Severity Reaction Last Updated Verified No Known Drug Allergies 08/21/18 No Physical Exam Physical Exam Constitutional: Well developed, well nourished, no acute distress, non-toxic appearance. [] HENT: Normocephalic, atraumatic, bilateral external ears normal, oropharynx moist, no oral exudates, nose normal. [] Eyes: PERRLA, EOMI, conjunctiva normal, no discharge. [] Neck: Normal range of motion, no tenderness, supple, no stridor. [] Cardiovascular:Heart rate regular rhythm, no murmur [] Lungs & Thorax: Bilateral breath sounds clear to auscultation [] Abdomen: Old healed surgical incision noted on the left side of the abdomen as well as mid abdomen. Bowel sounds normal, soft, diffuse tenderness throughout the abdomen worse on the left side, no masses, no pulsatile masses. [] Skin: Warm, dry, no erythema, no rash. [] Back: No tenderness, no CVA tenderness. [] Extremities: No tenderness, no cyanosis, no clubbing, ROM intact, no edema. [] Neurologic: Alert and oriented X 3, normal motor function, normal sensory function, no focal deficits noted. [] Psychologic: Affect normal, judgement normal, mood normal. [] Current Patient Data Vital Signs Vital Signs Date Time Temp Pulse Resp B/P (MAP) Pulse Ox O2 Delivery O2 Flow Rate FiO2 08/21/18 18:29 18 96 Room Air 08/21/18 18:00 98.4 91 123/84 (97) 98.4 Lab Values Laboratory Tests Test 08/21/18 18:00 08/21/18 18:14 08/21/18 18:19 Urine Collection Type Unknown Urine Color Yellow Urine Clarity Clear Urine pH 6.5 Urine Specific Ponce <=1.005 Urine Protein Negative mg/dL (NEG-TRACE) Urine Glucose (UA) Negative mg/dL (NEG) Urine Ketones (Stick) Negative mg/dL (NEG) Urine Blood Negative (NEG) Urine Nitrite Negative (NEG) Urine Bilirubin Negative (NEG) Urine Urobilinogen Dipstick 0.2 mg/dL (0.2 mg/dL) Urine Leukocyte Esterase Negative (NEG) Urine RBC 0 /HPF (0-2) Urine WBC 0 /HPF (0-4) Urine Squamous Epithelial Cells Few /LPF Urine Bacteria Few /HPF (0-FEW) Urine Opiates Screen Neg (NEG) Urine Methadone Screen Neg (NEG) Urine Barbiturates Neg (NEG) Urine Phencyclidine Screen Neg (NEG) Urine Amphetamine/Methamphetamine Pos (NEG) Urine Benzodiazepines Screen Pos (NEG) Urine Cocaine Screen Neg (NEG) Urine Cannabinoids Screen Neg (NEG) Urine Ethyl Alcohol Pos (NEG) POC Urine HCG, Qualitative Hcg negative (Negative) White Blood Count 5.9 x10^3/uL (4.0-11.0) Red Blood Count 3.94 x10^6/uL (3.50-5.40) Hemoglobin 12.1 g/dL (12.0-15.5) Hematocrit 35.7 % (36.0-47.0) L Mean Corpuscular Volume 91 fL (79-100) Mean Corpuscular Hemoglobin 31 pg (25-35) Mean Corpuscular Hemoglobin Concent 34 g/dL (31-37) Red Cell Distribution Width 15.3 % (11.5-14.5) H Platelet Count 411 x10^3/uL (140-400) H Neutrophils (%) (Auto) 83 % (31-73) H Lymphocytes (%) (Auto) 13 % (24-48) L Monocytes (%) (Auto) 4 % (0-9) Eosinophils (%) (Auto) 0 % (0-3) Basophils (%) (Auto) 0 % (0-3) Neutrophils # (Auto) 4.9 x10^3uL (1.8-7.7) Lymphocytes # (Auto) 0.7 x10^3/uL (1.0-4.8) L Monocytes # (Auto) 0.2 x10^3/uL (0.0-1.1) Eosinophils # (Auto) 0.0 x10^3/uL (0.0-0.7) Basophils # (Auto) 0.0 x10^3/uL (0.0-0.2) Sodium Level 138 mmol/L (136-145) Potassium Level 3.5 mmol/L (3.5-5.1) Chloride Level 100 mmol/L (98-107) Carbon Dioxide Level 31 mmol/L (21-32) Anion Gap 7 (6-14) Blood Urea Nitrogen 9 mg/dL (7-20) Creatinine 1.1 mg/dL (0.6-1.0) H Estimated GFR (Cockcroft-Gault) 54.5 BUN/Creatinine Ratio 8 (6-20) Glucose Level 112 mg/dL (70-99) H Calcium Level 8.9 mg/dL (8.5-10.1) Total Bilirubin 0.1 mg/dL (0.2-1.0) L Aspartate Amino Transferase (AST) 17 U/L (15-37) Alanine Aminotransferase (ALT) 15 U/L (14-59) Alkaline Phosphatase 84 U/L (46-116) Total Protein 7.1 g/dL (6.4-8.2) Albumin 3.2 g/dL (3.4-5.0) L Albumin/Globulin Ratio 0.8 (1.0-1.7) L Lipase 77 U/L (73-393) Ethyl Alcohol Level 79 mg/dL (0-10) H Laboratory Tests 08/21/18 18:19 Laboratory Tests 18 18:19 EKG EKG [] Radiology/Procedures Radiology/Procedures []PROCEDURE: CT ABD PELV W/ IV CONTRST ONLY CT abdomen and pelvis with contrast HISTORY: Severe abdominal pain, nausea and vomiting CT scan of the abdomen and pelvis was done using 60 mL Omnipaque 300 contrast. Lung bases are clear. There is no effusion. Liver is normal in appearance. Spleen is unremarkable. Adrenal glands are normal. Pancreas is normal in appearance. There is no mass or hydronephrosis in the kidneys. There is mild thickening of the gallbladder wall. Ultrasound could be of benefit. There is no free air or ascites. There is no bowel obstruction. Uterus and left ovary are normal. There is a 2.7 cm right ovarian cyst. Patient has had a partial colectomy. There is wall thickening of the terminal ileum suggesting and mild wall thickening of the rectum. There is mild adenopathy in the mesentery. IMPRESSION: 1. Mild bowel wall thickening of the distal small bowel and rectum suggesting colitis and ileitis. 2. Mild mesenteric adenopathy. 3. No bowel obstruction or abscess noted. 4. Right ovarian cyst 5. Mild thickening of the gallbladder wall without calcified gallstones. Electronically signed by: Albert Lainez MD (08/21/2018 7:28 PM) [facility] DICTATED and SIGNED BY: ALBERT LAINEZ MD DATE: 08/21/181919 Course & Med Decision Making Course & Med Decision Making Pertinent Labs and Imaging studies reviewed. (See chart for details) This is a 43-year-old female patient presenting to the ED today with abdominal pain nausea vomiting and diarrhea for 2 weeks. Patient has history of Crohn's/ colitis. CBC with normal WBC, CMP would not acute findings. Urine analysis is negative for infection. Drug screen noted for methamphetamine, benzodiazepines and alcohol. Alcohol level 79. Patient states she only had one glass of wine prior to coming to the ED. Lipase is normal. CT of the abdomen and pelvic- Mild bowel wall thickening of the distal small bowel and rectum suggesting colitis and ileitis. Mild mesenteric adenopathy. No bowel obstruction or abscess noted. Right ovarian cyst. Mild thickening of the gallbladder wall without calcified gallstones. Patient's pain is well-controlled in the ED.Will d/c with Flagyl and Cipro. Also discharged with Zofran and dicyclomine. Follow-up with PCP and GI doctor in the course of this week. Dragon Disclaimer Dragon Disclaimer This electronic medical record was generated, in whole or in part, using a voice recognition dictation system. Departure Departure Impression: Primary Impression: Colitis Additional Impressions: Alcohol intoxication Cholelithiasis Disposition: 01 HOME, SELF-CARE Condition: STABLE Referrals: NO PCP (PCP) AMIRA MARTINEZ MD Follow-up in the course of this week Patient Instructions: Colitis Additional Instructions: You were evaluated in the emergency room on noted to have colitis. Take the prescribed medications as ordered. Continue taking the prednisone your own. Follow-up with your own doctor the provided GI doctor in the course of this week or next week. Scripts Prednisone (PREDNISONE) 50 Mg Tablet 1 TAB PO DAILY, #5 TAB Prov: MUTUNGAREGINALDO [employer]ET[employer] SPECIALIST 08/21/18 Metronidazole (FLAGYL) 500 Mg Tablet 500 MG PO TID, #30 TAB Prov: MUTUNGAREGINALDO D[employer] MARKETING SPECIALIST 08/21/18 Ciprofloxacin Hcl (CIPRO) 500 Mg Tablet 1 TAB PO BID, #14 TAB Prov: MUTUNGAREGINALDO D[employer] MARKETING SPECIALIST 08/21/18 Problem Qualifiers Additional Impressions: Alcohol intoxication Complication of substance-induced condition: uncomplicated Qualified Codes: F10.920 - Alcohol use, unspecified with intoxication, uncomplicated Cholelithiasis Cholelithiasis location: gallbladder Cholecystitis presence: without cholecystitis Biliary obstruction: without biliary obstruction Qualified Codes: K80.20 - Calculus of gallbladder without cholecystitis without obstruction REGINALDO DONOVAN APRN Aug 21, 2018 18:48
[2018-08-21 18:50] LABS: ALBUMIN 3.2 g/dL (3.4-5.0); ALBUMIN/GLOBULIN RATIO 0.8 (1.0-1.7); TOTAL BILIRUBIN 0.1 mg/dL (0.2-1.0); TOTAL PROTEIN 7.1 g/dL (6.4-8.2)
[2018-08-21] MEDS: IOHEXOL 300 MG/ML 100ML VIAL. IV ONE (19:09)
--- NOTE | 2018-08-21 19:32 | RAD ---
CT abdomen and pelvis with contrast HISTORY: Severe abdominal pain, nausea and vomiting CT scan of the abdomen and pelvis was done using 60 mL Omnipaque 300 contrast. Lung bases are clear. There is no effusion. Liver is normal in appearance. Spleen is unremarkable. Adrenal glands are normal. Pancreas is normal in appearance. There is no mass or hydronephrosis in the kidneys. There is mild thickening of the gallbladder wall. Ultrasound could be of benefit. There is no free air or ascites. There is no bowel obstruction. Uterus and left ovary are normal. There is a 2.7 cm right ovarian cyst. Patient has had a partial colectomy. There is wall thickening of the terminal ileum suggesting and mild wall thickening of the rectum. There is mild adenopathy in the mesentery. IMPRESSION: 1. Mild bowel wall thickening of the distal small bowel and rectum suggesting colitis and ileitis. 2. Mild mesenteric adenopathy. 3. No bowel obstruction or abscess noted. 4. Right ovarian cyst 5. Mild thickening of the gallbladder wall without calcified gallstones. Electronically signed by: Albert Nortno MD (08/21/2018 7:28 PM) [facility]
[2018-08-21 19:57] VITALS: BP 157/82
[2018-08-21] MEDS ORDERED: CIPR500T94 PO (20:17)
[2018-08-21] MEDS ORDERED: METR500T PO (20:17)
[2018-08-21] MEDS ORDERED: PRED50TA PO (20:17)
== END 2018-08-21 20:23 | disposition home or self-care (01) ==
LOC: ER 17:15
DX: K80.20 Calculus of gallbladder without cholecystitis without obstruction (principal); K52.9 Noninfective gastroenteritis and colitis, unspecified; F10.129 Alcohol abuse with intoxication, unspecified; Y90.9 Presence of alcohol in blood, level not specified; N83.201 Unspecified ovarian cyst, right side; R59.0 Localized enlarged lymph nodes; Z90.49 Acquired absence of other specified parts of digestive tract
CPT/HCPCS: 36415; 74177; 80053; 80307; 81001; 81025; 83690; 85025; 96361; 96374; 96375; 99284; G0480; J2270; J2405; J2930; J7030; Q9967

== ENCOUNTER 2020-07-27 03:43 | Inpatient (IN) | payer OTHER ==
[~2020-07-27] VITALS: Ht 157.5 cm; Wt 52.7 kg
[~2020-07-27 03:43] MED LIST changes: +CIPR500T94 PO; +PRED50TA PO
[2020-07-27 04:21] LABS: BASO # 0.1 x10^3/uL (0.0-0.2); BASO % 1 % (0-3); EOS # 0.1 x10^3/uL (0.0-0.7); EOS % 1 % (0-3); HEMATOCRIT 42.6 % (36.0-47.0); HEMOGLOBIN 14.2 g/dL (12.0-15.5); LYMPH % 23 % (24-48); MEAN CORPUSCULAR HEMOGLOBIN 28 pg (25-35); MEAN CORPUSCULAR HGB CONC 33 g/dL (31-37); MEAN CORPUSCULAR VOLUME 84 fL (79-100); MONO % 12 % (0-9); NEUT # 5.4 x10^3/uL (1.8-7.7); NEUT % 64 % (31-73); PLATELET COUNT 632 x10^3/uL (140-400); RED BLOOD COUNT 5.08 x10^6/uL (3.50-5.40); WHITE BLOOD COUNT 8.5 x10^3/uL (4.0-11.0)
[2020-07-27] MEDS ORDERED: ONDANSETRON PF 4 MG/2 ML VIAL. IVP ONE (04:30)
[2020-07-27] MEDS ORDERED: IV NORMAL SALINE 1000ML BAG 1,000 ML IV ONE (04:30)
[2020-07-27 04:31] LABS: BILIRUBIN,URINE NEGATIVE (NEG); CLARITY,URINE CLEAR; COLOR,URINE YELLOW; NITRITE,URINE NEGATIVE (NEG); PH,URINE 6.5 (<5.0-8.0); PROTEIN,URINE 30 mg/dL (NEG-TRACE); UROBILINOGEN,URINE 0.2 mg/dL (0.2 mg/dL)
[2020-07-27 04:35] LABS: ALBUMIN 3.9 g/dL (3.4-5.0); ALBUMIN/GLOBULIN RATIO 0.9 (1.0-1.7); CALCIUM 9.5 mg/dL (8.5-10.1); CREATININE 1.2 mg/dL (0.6-1.0); GFR 48.8; TOTAL BILIRUBIN 0.5 mg/dL (0.2-1.0); TOTAL PROTEIN 8.2 g/dL (6.4-8.2)
[2020-07-27 04:37] LABS: POTASSIUM 2.7 mmol/L (3.5-5.1)
[2020-07-27 04:38] LABS: RBC,URINE OCC /HPF (0-2); WBC,URINE TNTC /HPF (0-4)
[2020-07-27 04:39] LABS: BACTERIA,URINE MANY /HPF (0-FEW); HYALINE CASTS, URINE FEW /HPF
[2020-07-27] MEDS ORDERED: POTASSIUM CHLORIDE 20MEQ 100 ML IV ONE (05:00)
--- NOTE | 2020-07-27 05:12 | PHYS DOC ---
Past Medical History Past Medical History: Other Additional Past Medical Histor: CROHNS Past Surgical History: Colectomy, Other Additional Past Surgical Histo: BOWEL RESECTION Smoking Status: Current Every Day Smoker Alcohol Use: Heavy Drug Use: None General Adult EDM: Chief Complaint: ABDOMINAL PAIN HPI: HPI: Patient is a 45 year old female with history of Crohn's disease presented to ER by EMS from home due to abdominal pain off and on for a week associated with nausea vomiting. Patient says she had not been able to keep anything down since yesterday she feels weak, dehydrated. Therefore she came here for evaluation. Patient denies any fever, no cough, no diarrhea. Patient had total colectomy in the past. She does not have a GI doctor at this time. Patient denies being exposed to anybody who tested positive for COVID-19. Review of Systems: Review of Systems: Constitutional: Denies fever or chills. [] Eyes: Denies change in visual acuity. [] HENT: Denies nasal congestion or sore throat. [] Respiratory: Denies cough or shortness of breath. [] Cardiovascular: Denies chest pain or edema. [] GI: Positive for abdominal pain, nausea vomiting, no diarrhea. : Denies dysuria. [] Musculoskeletal: Denies back pain or joint pain. [] Integument: Denies rash. [] Neurologic: Denies headache, focal weakness or sensory changes. [] Endocrine: Denies polyuria or polydipsia. [] Lymphatic: Denies swollen glands. [] Psychiatric: Denies depression or anxiety. [] Heart Score: Risk Factors: Risk Factors: DM, Current or recent (<one month) smoker, HTN, HLP, family history of CAD, obesity. Risk Scores: Score 0 - 3: 2.5% MACE over next 6 weeks - Discharge Home Score 4 - 6: 20.3% MACE over next 6 weeks - Admit for Clinical Observation Score 7 - 10: 72.7% MACE over next 6 weeks - Early Invasive Strategies Current Medications: Current Medications Medications (Trade) Dose Ordered Sig/Moiz Start Time Stop Time Status Last Admin Dose Admin Ondansetron HCl (Zofran) 8 mg 1X ONCE 07/27/20 04:30 07/27/20 04:31 DC Potassium Chloride/Water 100 ml @ 50 mls/hr 1X ONCE 07/27/20 05:00 07/27/20 06:59 07/27/20 04:55 50 MLS/HR Sodium Chloride 1,000 ml @ 1,000 mls/hr 1X ONCE 07/27/20 04:30 07/27/20 05:29 07/27/20 04:56 1,000 MLS/HR Allergies: Allergies: Allergies Coded Allergies Type Severity Reaction Last Updated Verified No Known Drug Allergies 08/21/18 No Physical Exam: PE: Constitutional: Well developed, well nourished, no acute distress, non-toxic appearance. [] HENT: Normocephalic, atraumatic, bilateral external ears normal, oropharynx dried ora mucosa, no oral exudates, nose normal. [] Eyes: PERRLA, EOMI, conjunctiva normal, no discharge. [] Neck: Normal range of motion, no tenderness, supple, no stridor. [] Cardiovascular:Heart rate regular rhythm, no murmur [] Lungs & Thorax: Bilateral breath sounds clear to auscultation [] Abdomen: Bowel sounds normal, soft, diffused tenderness to palpation, no masses, no pulsatile masses. [] Skin: Warm, dry, no erythema, no rash. [] Back: No tenderness, no CVA tenderness. [] Extremities: No tenderness, no cyanosis, no clubbing, ROM intact, no edema. [] Neurologic: Alert and oriented X 3, normal motor function, normal sensory function, no focal deficits noted. [] Psychologic: Affect normal, judgement normal, mood normal. [] Current Patient Data: Labs: Laboratory Tests Test 07/27/20 03:50 07/27/20 04:00 07/27/20 04:01 Urine Collection Type Unknown Urine Color Yellow Urine Clarity Clear Urine pH 6.5 (<5.0-8.0) Urine Specific Z[place]ki 1.015 (1.000-1.030) Urine Protein 30 mg/dL (NEG-TRACE) Urine Glucose (UA) Negative mg/dL (NEG) Urine Ketones (Stick) 15 mg/dL (NEG) Urine Blood Trace (NEG) Urine Nitrite Negative (NEG) Urine Bilirubin Negative (NEG) Urine Urobilinogen Dipstick 0.2 mg/dL (0.2 mg/dL) Urine Leukocyte Esterase Moderate (NEG) Urine RBC Occ /HPF (0-2) Urine WBC Tntc /HPF (0-4) Urine Squamous Epithelial Cells Many /LPF Urine Bacteria Many /HPF (0-FEW) Urine Hyaline Casts Few /HPF Urine Mucus Slight /LPF White Blood Count 8.5 x10^3/uL (4.0-11.0) Red Blood Count 5.08 x10^6/uL (3.50-5.40) Hemoglobin 14.2 g/dL (12.0-15.5) Hematocrit 42.6 % (36.0-47.0) Mean Corpuscular Volume 84 fL (79-100) Mean Corpuscular Hemoglobin 28 pg (25-35) Mean Corpuscular Hemoglobin Concent 33 g/dL (31-37) Red Cell Distribution Width 17.0 % (11.5-14.5) H Platelet Count 632 x10^3/uL (140-400) H Neutrophils (%) (Auto) 64 % (31-73) Lymphocytes (%) (Auto) 23 % (24-48) L Monocytes (%) (Auto) 12 % (0-9) H Eosinophils (%) (Auto) 1 % (0-3) Basophils (%) (Auto) 1 % (0-3) Neutrophils # (Auto) 5.4 x10^3/uL (1.8-7.7) Lymphocytes # (Auto) 2.0 x10^3/uL (1.0-4.8) Monocytes # (Auto) 1.0 x10^3/uL (0.0-1.1) Eosinophils # (Auto) 0.1 x10^3/uL (0.0-0.7) Basophils # (Auto) 0.1 x10^3/uL (0.0-0.2) Sodium Level 130 mmol/L (136-145) L Potassium Level 2.7 mmol/L (3.5-5.1) *L Chloride Level 91 mmol/L (98-107) L Carbon Dioxide Level 29 mmol/L (21-32) Anion Gap 10 (6-14) Blood Urea Nitrogen 13 mg/dL (7-20) Creatinine 1.2 mg/dL (0.6-1.0) H Estimated GFR (Cockcroft-Gault) 48.8 BUN/Creatinine Ratio 11 (6-20) Glucose Level 129 mg/dL (70-99) H Calcium Level 9.5 mg/dL (8.5-10.1) Total Bilirubin 0.5 mg/dL (0.2-1.0) Aspartate Amino Transferase (AST) 14 U/L (15-37) L Alanine Aminotransferase (ALT) 12 U/L (14-59) L Alkaline Phosphatase 119 U/L (46-116) H Total Protein 8.2 g/dL (6.4-8.2) Albumin 3.9 g/dL (3.4-5.0) Albumin/Globulin Ratio 0.9 (1.0-1.7) L Lipase 58 U/L (73-393) L POC Urine HCG, Qualitative Hcg negative (Negative) Laboratory Tests 07/27/20 04:00 Laboratory Tests 07/27/20 04:00 Vital Signs: Vital Signs Date Time Temp Pulse Resp B/P (MAP) Pulse Ox O2 Delivery O2 Flow Rate FiO2 07/27/20 03:43 98.3 91 24 136/97 (110) 99 Room Air 98.3 EKG: EKG: [] Radiology/Procedures: Radiology/Procedures: [][facility] [address] [place] [address] IMAGING REPORT Signed PATIENT: HCEPEDecember ACCOUNT: [id number] : 1975 LOCATION: ER AGE: 45 SEX: F EXAM STATUS: REG ER ORD. PHYSICIAN: JANESSA BARBOSA DO REASON: ABDOMINAL PAIN, HX OF CROHN'S DISEASE PROCEDURE: CT ABDOMEN PELVIS WO CONTRAST Abdominal and Pelvis CT, Without Contrast: History: Reason: ABDOMINAL PAIN, HX OF CROHN'S DISEASE / Spl. Instructions: / History: Comparison: August 21, 2018. Procedure: Axial images are obtained of the abdomen and pelvis, without IV or oral contrast. Oral Contrast: No Findings: There is mild wall thickening of the distal stomach. There are are multiple loops of small bowel which have mild to moderate wall thickening. This is especially seen in the pelvis. Evaluation of solid organs is limited without contrast. Liver: Normal. Spleen: Normal. Pancreas: Normal. Adrenal Glands: Normal. Kidneys: There is a single tiny punctate nonobstructive stone in each renal pelvis. There is no free air or free fluid. There is no lymphadenopathy. The urinary bladder appears normal. There is no pericolonic inflammation identified. Impression: 1. Mild wall thickening of the distal stomach could be nondistention or could be gastritis. 2. Mild to moderate wall thickening of multiple loops of small bowel suggesting enteritis likely secondary to Crohn's disease. This is especially seen in the pelvis. End impression PQRS Compliance Statement: One or more of the following individualized dose reduction techniques were utilized for this examination: 1. Automated exposure control 2. Adjustment of the mA and/or kV according to patient size 3. Use of iterative reconstruction technique Electronically signed by: Gardenia Banda III, MD (07/27/2020 5:57 AM) [facility] DICTATED and SIGNED BY: GARDENIA BANDA III, MD DATE: 07/27/20 0557 Course & Med Decision Making: Course & Med Decision Making Pertinent Labs and Imaging studies reviewed. (See chart for details) Patient is a 45-year-old female who presented to ER for evaluation of abdominal pain, nausea vomiting, she was found to have low potassium, dehydration, Crohn's flare patient will be admitted to hospital for further evaluation treatment Stan Disclaimer: Stan Disclaimer: This electronic medical record was generated, in whole or in part, using a voice recognition dictation system. Departure Departure Impression: Primary Impression: Hypokalemia Additional Impressions: Dehydration Crohns disease Disposition: 09 ADMITTED INPT THIS HOSP Admitting Physician: ROLANDO (Dr. Bentley) Condition: IMPROVED Referrals: NO PCP (PCP) JANESSA BARBOSA DO Jul 27, 2020 05:12
[2020-07-27] MEDS ORDERED: MORPHINE SULFATE 2 MG/ML VIAL. IV ONE (05:30)
--- NOTE | 2020-07-27 06:00 | RAD ---
Abdominal and Pelvis CT, Without Contrast: History: Reason: ABDOMINAL PAIN, HX OF CROHN'S DISEASE / Spl. Instructions: / History: Comparison: August 21, 2018. Procedure: Axial images are obtained of the abdomen and pelvis, without IV or oral contrast. Oral Contrast: No Findings: There is mild wall thickening of the distal stomach. There are are multiple loops of small bowel which have mild to moderate wall thickening. This is especially seen in the pelvis. Evaluation of solid organs is limited without contrast. Liver: Normal. Spleen: Normal. Pancreas: Normal. Adrenal Glands: Normal. Kidneys: There is a single tiny punctate nonobstructive stone in each renal pelvis. There is no free air or free fluid. There is no lymphadenopathy. The urinary bladder appears normal. There is no pericolonic inflammation identified. Impression: 1. Mild wall thickening of the distal stomach could be nondistention or could be gastritis. 2. Mild to moderate wall thickening of multiple loops of small bowel suggesting enteritis likely secondary to Crohn's disease. This is especially seen in the pelvis. End impression PQRS Compliance Statement: One or more of the following individualized dose reduction techniques were utilized for this examination: 1. Automated exposure control 2. Adjustment of the mA and/or kV according to patient size 3. Use of iterative reconstruction technique Electronically signed by: Selvin Banda III, MD (07/27/2020 5:57 AM) [facility]
[2020-07-27] MEDS ORDERED: fentaNYL PF VIAL 100 MCG/2 ML VIAL IVP ONE (06:15)
[2020-07-27] MEDS ORDERED: methylPREDNISolone SOD SUCC PF 125 MG/2 ML VIAL. IV ONE (06:15)
[2020-07-27 08:03] VITALS: BP 118/76
[2020-07-27 11:00] VITALS: BP 130/91
[2020-07-27] MEDS ORDERED: POTASSIUM CHLORIDE 20 MEQ TABLET.ER. PO ONE (11:30)
[2020-07-27] MEDS: NICOTINE 21MG PATCH. TD SCH (11:58)
[2020-07-27] MEDS: MORPHINE SULFATE 2 MG/ML VIAL. IV PRN ×4 (11:59→21:24)
[2020-07-27] MEDS: IV NORMAL SALINE 1000ML BAG 1,000 ML IV SCH (12:05)
--- NOTE | 2020-07-27 12:46 | SSS ---
ADMIT DATE: 07/27/2020 CHIEF COMPLAINT: Abdominal pain. HISTORY OF PRESENT ILLNESS: The patient is a pleasant 45-year-old female who has a known history of Crohn's with bowel resection. She presented last night with abdominal pain, rated 6/10. She has associated nausea and vomiting. She was admitted overnight for observation. This morning, she is doing better and is requesting discharge. PAST MEDICAL HISTORY: Crohn's disease and colectomy. ALLERGIES: None. FAMILY HISTORY: Diabetes. SOCIAL HISTORY: She does not drink, smoke or take drugs. MEDICATIONS: Reviewed, please refer to the MRAD. REVIEW OF SYSTEMS: GENERAL: No history of weight change, weakness or fevers. SKIN: No bruising, hair changes or rashes. EYES: No blurred, double or loss of vision. NOSE AND THROAT: No history of nosebleeds, hoarseness or sore throat. HEART: No history of palpitations, chest pain or shortness of breath on exertion. LUNGS: Denies cough, hemoptysis, wheezing or shortness of breath. GASTROINTESTINAL: Denies changes in appetite, nausea, vomiting, diarrhea or constipation. GENITOURINARY: No history of frequency, urgency, hesitancy or nocturia. NEUROLOGIC: Denies history of numbness, tingling, tremor or weakness. PSYCHIATRIC: No history of panic, anxiety or depression. ENDOCRINE: No history of heat or cold intolerance, polyuria or polydipsia. EXTREMITIES: Denies muscle weakness, joint pain, pain on walking or stiffness. PHYSICAL EXAMINATION: VITALS: Within normal limits and are stable. GENERAL: No apparent distress. Alert and oriented. HEENT: Normal cephalic atraumatic, external auditory canals are patent EYES: Extraocular muscles are intact, pupils are equally round and reactive to light and accommodation MUSCULOSKELETAL: Well developed, well nourished, good range of motion ENDOCRINE: No thyromegaly was palpated LYMPHATICS: No cervical chain or axillary nodes were noted HEMATOPOIETIC: No bruising NECK: Supple, no JVD, no thyromegaly was noted. LUNGS: Clear to auscultation in all lung cervantes without rhonchi or wheezing. HEART: RRR, S1, S2 present. Peripheral pulses intact, no obvious murmurs were noted. ABDOMEN: Soft, nontender. Positive bowel sounds no organomegaly, normal bowel sounds. EXTREMITIES: Without any cyanosis, clubbing, or edema. Pedal pulses intact, Homans sign is negative. NEUROLOGIC: Normal speech, normal tone. A and O x 3, moves all extremities, no obvious focal deficits. PSYCHIATRIC: Normal affect, normal mood. Stable. SKIN: No ulcerations or rashes, good skin turgor, no jaundice. VASCULAR: Good capillary refill, neurovascular bundle appears to be intact. ASSESSMENT AND PLAN: Resolving Crohn's exacerbation. The patient was admitted overnight for observation. This morning, she is doing well and wants to go home. If okay with GI, we are going to go ahead and let her go home. DISPOSITION: Home. ACTIVITY: As tolerated. DIET: Low sodium. MEDICATIONS: Please see the MRAD. TOTAL TIME: 32 minutes. FARA MEJIA DO DR: GUSTAVO/nieves JOB#: [id number] / [id number]
--- NOTE | 2020-07-27 14:04 | NUR ---
SW following for discharge planning. Spoke with RN and reviewed chart. SW met with pt. Pt lives alone and is working. Pt requesting discharge. Pt reported no concerns about returning home at discharge. Pt on room air, oral medications. Pt to discharge home today, 07/27 self-care. No further SW needs at this time.
[2020-07-27 14:38] VITALS: BP 105/78
--- NOTE | 2020-07-27 16:45 | NUR ---
Patient states that she does not want to leave due to her stomach hurting after eating a regular meal tray. Paged Dr Thomas
--- NOTE | 2020-07-27 17:01 | NUR ---
Spoke with Dr Thomas regarding discharge. Dr Thomas stated that since patient wanted to leave he will not d/c the order and if she feels better in the next couple of hours then she can leave.
[2020-07-27] MEDS: ONDANSETRON PF 4 MG/2 ML VIAL. IVP PRN (18:49)
[2020-07-27 19:00] VITALS: BP 166/101
[2020-07-27] MEDS: ALPRAZolam 1 MG TABLET PO SCH (20:47)
[2020-07-27] MEDS: methylPREDNISolone SOD SUCC PF 40 MG/ML VIAL. IV SCH (20:47)
[2020-07-27 23:00] VITALS: BP 150/96
[2020-07-28] MEDS: IV NORMAL SALINE 1000ML BAG 1,000 ML IV SCH (00:16)
[2020-07-28] MEDS: MORPHINE SULFATE 2 MG/ML VIAL. IV PRN ×5 (00:45→11:44)
[2020-07-28] MEDS: ONDANSETRON PF 4 MG/2 ML VIAL. IVP PRN (00:47)
[2020-07-28 03:00] VITALS: BP 151/99
[2020-07-28 07:00] VITALS: BP 113/77
[2020-07-28] MEDS ORDERED: METHYLPHENIDATE HCL 5 MG TABLET PO SCH (07:30)
[2020-07-28] MEDS: methylPREDNISolone SOD SUCC PF 40 MG/ML VIAL. IV SCH (07:57)
[2020-07-28] MEDS: ALPRAZolam 1 MG TABLET PO SCH (07:58)
[2020-07-28] MEDS: NICOTINE 21MG PATCH. TD SCH (07:58)
[2020-07-28] MEDS ORDERED: CITALOPRAM 20 MG TABLET. PO SCH (09:00)
--- NOTE | 2020-07-28 09:23 | PDOC2 ---
FREDRICK WILSON 07/28/20 0923: GI CONSULT Date of Service: DATE: 07/28/20 TIME: 09:22 Reason For Consult: n/v HPI: HPI: 45 y/o female who we've seen in the past. Ill x 1 week w/ abd pain (diffuse, cramping) and vomiting. No change in chronic diarrhea. No bleeding. Tolerating clears now and nurse says to discharge today per Dr. Thomas. H/o Crohn's disease diagnosed ~in early . S/p subtotal colectomy w/ ileosigmoid anastomosis. Past use of Remicade (stopped for "allergy"), then Humira after resection (didn't like), varying response to PO maintenance meds (can't remember which). Apparently has a lot of leftover prednisone at home so treats herself for flare symptoms a few times each year. This time took 40mg x 1, then skipped a day, then had throat pain and decided to come to ER. Past TPMT normal; recs to follow-up in the office to discuss Imuran - she did not pursue. Last colonoscopy maybe in 2012? Can document past colonoscopy at [facility] w/ distal ileal disease. H/o GERD - takes OTC "chewables" sometimes. No previous EGD. No GB, liver, pancreas, or PUD history. Still smokes a pack a day. Takes Excedrin routinely. PMH: PMH: Crohn's, GERD, anxiety/depression, ileocolonic resection, tubal ligation, unilateral salpingo-oophorectomy, left wrist surgery, tonsillectomy FH: Family History: Other (PGF's cousin w/ colon surgery) Social History: Smoke: 1 pack per day ALCOHOL: other (2-3 glasses of wine at night) Drugs: None ROS: GEN: Denies fevers, chills, sweats HEENT: Denies blurred vision, sore throat CV: Denies chest pain RESP: Denies shortness of air, cough GI: Per HPI : Denies hematuria, dysuria ENDO: Denies weight changes NEURO: Denies confusion, dizziness MSK: Denies weakness, joint pain/swelling SKIN: Denies jaundice, pruritus Vitals: Vitals: Vital Signs Date Time Temp Pulse Resp B/P (MAP) Pulse Ox O2 Delivery O2 Flow Rate FiO2 07/28/20 07:57 18 97 Room Air 07/28/20 07:00 97.9 87 113/77 (89) 97.9 Allergies: Coded Allergies: No Known Drug Allergies (Unverified , 08/21/18) Medications: Current Medications Medications (Trade) Dose Ordered Sig/Moiz Route PRN Reason Start Time Stop Time Status Last Admin Dose Admin Morphine Sulfate (Morphine Sulfate) 2 mg PRN Q2HR PRN IV PAIN 07/27/20 11:00 07/28/20 07:57 Potassium Chloride (Klor-Con) 40 meq 1X ONCE PO 07/27/20 11:30 07/27/20 11:31 DC 07/27/20 11:58 Sodium Chloride 1,000 ml @ 75 mls/hr [id number] IV 07/27/20 11:30 07/28/20 00:16 Nicotine (Nicoderm Cq 21mg) 1 patch DAILY TD 07/27/20 11:30 07/28/20 07:58 Methylprednisolone Sodium Succinate (SOLU-Medrol 40MG VIAL) 40 mg Q12HR IV 07/27/20 21:00 07/28/20 07:57 Ondansetron HCl (Zofran) 4 mg PRN Q6HRS PRN IVP NAUSEA/VOMITING 07/27/20 18:45 07/28/20 00:47 Alprazolam (Xanax) 1 mg BID PO 07/27/20 21:00 07/28/20 07:58 Citalopram Hydrobromide (CeleXA) 40 mg DAILY PO 07/28/20 09:00 07/28/20 07:58 Imaging: Imaging: CT A/P Impression: 1. Mild wall thickening of the distal stomach could be nondistention or could be gastritis. 2. Mild to moderate wall thickening of multiple loops of small bowel suggesting enteritis likely secondary to Crohn's disease. This is especially seen in the pelvis. PE: GEN: NAD, having clear liquid breakfast HEENT: Atraumatic, PERRL LUNGS: slightly diminished anteriorly HEART: RRR ABD: NABS, S/ND, vague non-specific tenderness EXTREMITY: No edema SKIN: No rashes, no jaundice NEURO/PSYCH: A & O 3 A/P: A/P: Abd pain, vomiting - better, feels like Crohn's flare Hyponatremia, hypokalemia - per Dr. Thomas Abnormal CT - possible gastritis vs nondistention, enteritis GERD H/o Crohn's s/p subtotal colectomy w/ ileosigmoid anastomosis +tobacco NSAID use -- Left Rx for prednisone w/ nurse in place of Medrol dose pack. Per Dr. Martinez - recheck TPMT prior to DC, follow-up in the office for results and to discuss treatment moving forward - our office will call to schedule appt. She requests colonoscopy and EGD as outpt. AMIRA MARTINEZ MD 07/28/20 1015: FREDRICK WILSON Jul 28, 2020 09:23 AMIRA MARTINEZ MD Jul 28, 2020 10:15
--- NOTE | 2020-07-28 09:29 | PDOC ---
[employer] PROGRESS NOTE Date of Service DOS: DATE: 07/28/20 TIME: 09:25 Chief Complaint Chief Complaint Crohns disease Abdominal pain Status post colectomy Hypokalemia Nausea History of Present Illness History of Present Illness HISTORY OF PRESENT ILLNESS: The patient is a pleasant 45-year-old female who has a known history of Crohn's with bowel resection. She presented last night with abdominal pain, rated 6/10. She has associated nausea and vomiting. She was admitted overnight for observation. This morning, she is doing better and is requesting discharge. 07/28/2020 Pt seen and examined DW RN [facility] case management Tried solid foods but was unable to fully tolerate due to pain, can still have liquids Potassium noted to be 2.7 on 07/27 and was given 3x10 mEq GI following She is feeling better and would like to go back to work Vitals/I&O Vitals/I&O: Vital Signs Date Time Temp Pulse Resp B/P (MAP) Pulse Ox O2 Delivery O2 Flow Rate FiO2 07/28/20 07:57 18 97 Room Air 07/28/20 07:00 97.9 87 113/77 (89) 97.9 I & O 07/27/20 07/27/20 07/28/20 15:00 23:00 07:00 Intake Total 1100 ml 200 ml 550 ml Balance 1100 ml 200 ml 550 ml Physical Exam General: Alert, Oriented X3, Cooperative, No acute distress Heart: Regular rate, No murmurs Lungs: Clear Abdomen: Normal bowel sounds, Soft Extremities: No clubbing, No cyanosis, No edema Skin: No rashes, No significant lesion Assessment and Plan Assessmemt and Plan Problems Medical Problems: (1) Crohns disease Status: Acute (2) Dehydration Status: Acute (3) Hypokalemia Status: Acute Assessment: Crohns disease Abdominal pain Status post colectomy Hypokalemia Nausea Plan: IV fluids Full code DVT PPx Home meds PRN pain meds Nausea meds Continue steroids Continue clear liquids, may advance as tolerated Discharge when okay with GI pending evaluation Comment Review of Relevant I have reviewed the following items geovany (where applicable) has been applied. Medications: Current Medications Medications (Trade) Dose Ordered Sig/Moiz Route PRN Reason Start Time Stop Time Status Last Admin Dose Admin Morphine Sulfate (Morphine Sulfate) 2 mg PRN Q2HR PRN IV PAIN 07/27/20 11:00 07/28/20 07:57 Potassium Chloride (Klor-Con) 40 meq 1X ONCE PO 07/27/20 11:30 07/27/20 11:31 DC 07/27/20 11:58 Sodium Chloride 1,000 ml @ 75 mls/hr [id number] IV 07/27/20 11:30 07/28/20 00:16 Nicotine (Nicoderm Cq 21mg) 1 patch DAILY TD 07/27/20 11:30 07/28/20 07:58 Methylprednisolone Sodium Succinate (SOLU-Medrol 40MG VIAL) 40 mg Q12HR IV 07/27/20 21:00 07/28/20 07:57 Ondansetron HCl (Zofran) 4 mg PRN Q6HRS PRN IVP NAUSEA/VOMITING 07/27/20 18:45 07/28/20 00:47 Alprazolam (Xanax) 1 mg BID PO 07/27/20 21:00 07/28/20 07:58 Citalopram Hydrobromide (CeleXA) 40 mg DAILY PO 07/28/20 09:00 07/28/20 07:58 Justifications for Admission Other Justification FARA MEJIA III DO Jul 28, 2020 09:29
--- NOTE | 2020-07-28 11:48 | NUR ---
SW following for discharge planning. Spoke with RN and reviewed chart. Discharge held 07/27 at pt's request. SW met with pt again today. Discharge plan remains home, self-care. No SW needs identified. Pt will likely discharge today, 07/28.
[2020-07-28] MEDS ORDERED: PRED-220 PO (11:58)
[2020-07-28] MEDS ORDERED: HYDR-3164 PO (11:58)
== END 2020-07-28 12:08 | disposition home or self-care (01) | DRG 387 ==
LOC: ER 03:43 → 5 NORTH 06:00
PROVIDERS: ADMIT Internal Medicine; ATTEND Internal Medicine
DX: K50.00 Crohn's disease of small intestine without complications (principal); E86.0 Dehydration; E87.6 Hypokalemia; F17.210 Nicotine dependence, cigarettes, uncomplicated; F32.9 Major depressive disorder, single episode, unspecified; F41.9 Anxiety disorder, unspecified; K21.9 Gastro-esophageal reflux disease without esophagitis; Z79.52 Long term (current) use of systemic steroids; Z83.3 Family history of diabetes mellitus; Z90.49 Acquired absence of other specified parts of digestive tract; Z98.51 Tubal ligation status; Z90.721 Acquired absence of ovaries, unilateral
CPT/HCPCS: 36415; 74176; 80053; 81001; 81025; 83690; 85025; 87086; 96365; 96366; 96375; 99285; J2270; J2405; J2920; J2930; J3010; J3480; J7030; G0378